=== PATIENT | female | born 1945 | race Two or more races ===

== ENCOUNTER 2020-08-16 15:08 | Outpatient (REF) | payer OTHER, SELFPAY ==
--- NOTE | ~2020-08-16 | XR_ITS ---
EXAMINATION: XR CHEST CLINICAL INFORMATION: Cough COMPARISON: None TECHNIQUE: 2 views of the chest were obtained. FINDINGS: The heart does not appear enlarged. There is retraction of the right pulmonary hilum. The thoracic aorta is calcified. There is right apical pleural thickening. There are increased central bronchial markings. There are scattered nodular opacities seen throughout the lungs. The largest measures 1 x 1.4 cm in the left lower lobe. There is no pleural effusion or pneumothorax. Bony structures are unremarkable. XR/XR chest 2V IMPRESSION: Right apical pleural thickening and volume loss to the right upper lobe. Bilateral bronchial wall thickening and bilateral pulmonary nodules and nodular opacities. Infectious, inflammatory and neoplastic process should be considered. If there is clinical suspicion of pneumonia, short-term chest x-ray follow-up following antibiotic treatment would be recommended. If there are no symptoms to suggest infection or chest x-ray findings do not resolve, chest CT scan should be considered.
== END 2020-08-16 15:09 | disposition home or self-care (01) ==
LOC: HO.HMGCX 15:08
PROVIDERS: PCP Internal Medicine; Visit Provider Nurse Practitioner Family
DX: R05 Cough (principal)
CPT/HCPCS: 71046

== ENCOUNTER 2020-08-16 16:06 | Outpatient (REF) | payer OTHER, SELFPAY ==
[2020-08-17 12:35] LABS: Influenza A PCR NEGATIVE (Negative); Influenza B PCR NEGATIVE (Negative); Resp Syncy Virus RNA Qual PCR NEGATIVE (Negative); SARS COV2 PCR INHOUSE NEGATIVE (Negative)
== END 2020-08-16 16:07 | disposition home or self-care (01) ==
LOC: HO.LAB 16:06
PROVIDERS: Visit Provider Nurse Practitioner Family
DX: Z20.822 Contact with and (suspected) exposure to COVID-19 (principal)
CPT/HCPCS: 0241U; 36415

== ENCOUNTER 2020-11-07 08:24 | Outpatient (REF) | payer OTHER, SELFPAY ==
--- NOTE | ~2020-11-07 | XR_ITS ---
EXAMINATION: XR LUMBOSACRAL SPINE CLINICAL INFORMATION: M54.16 - Radiculopathy, lumbar region COMPARISON: None TECHNIQUE: Three views of the lumbosacral spine. FINDINGS: There is normal lumbar segmentation with 5 nonrib-bearing lumbar vertebrae of normal height and normal lumbar lordosis. There is borderline levocurvature mid to lower lumbar spine. There is no vertebral compression or destructive process. Degenerative disc and degenerative facet changes are present at L4-L5 with associated grade 0-1 spondylolisthesis. There is also facet degeneration at the lumbosacral junction without narrowing. The SI joints and visualized sacrum are unremarkable. Bowel gas unremarkable. There are some scattered benign oval calcifications pelvis scattered atherosclerotic calcifications are present aorta. XR/XR lumbar spine 2-3V IMPRESSION: 1. Grade 0-1 spondylolisthesis L4-L5 with degenerative disc and degenerative facet changes. 2. Facet degenerative changes lumbosacral junction.
--- NOTE | ~2020-11-07 | XR_ITS ---
EXAMINATION: XR KNEE, LEFT CLINICAL INFORMATION: Left knee pain COMPARISON: None TECHNIQUE: Four views of the left knee. FINDINGS: There is no fracture or dislocation or destructive process. There is borderline narrowing medial knee joint compartment. No erosive change or chondrocalcinosis. Lateral view is slightly obliqued. There is no overt effusion. Some mild spurring is present at the quadriceps insertion patella. Hoffa's fat pad appears normal. XR/XR knee LT 4V IMPRESSION: 1. Borderline narrowing medial knee joint compartment. 2. Spurring at quadriceps insertion patella.
--- NOTE | ~2020-11-07 | XR_ITS ---
EXAMINATION: XR CHEST CLINICAL INFORMATION: Abnormal findings of lungs. COMPARISON: Chest 08/16/2020 TECHNIQUE: Two views of the chest were obtained. FINDINGS: There is a thick right apical density/scarring with tenting of right hemidiaphragm and loss of right lung volume. There is linear stranding in the right lower lobe as well as right upper lobe, likely chronic scarring. There are bilateral multiple calcified and noncalcified nodules, similar to previous study. There is no pleural effusion. Heart size and pulmonary vascularity is normal. No gross bony abnormality seen. XR/XR chest 2V IMPRESSION: Right apical pleural thickening, right hemidiaphragm tenting with loss of right lung volume. There are chronic interstitial changes in the right upper lobe and right lower lobe which are stable. Multiple calcified and noncalcified pulmonary nodules are stable, as well. No major change from 08/16/2020. Correlation with noncontrast CT chest can be performed.
[2020-11-07 11:15] LABS: MANUAL DIFF FLAG NO
[2020-11-07 11:26] LABS: Basophils Percent Auto 0.5 % (0-2); Eosinophils Absolute Auto 0.1 X10*3/uL (0.0-0.4); Eosinophils Percent Auto 1.2 % (0-4); Hematocrit 41.8 % (37-47); Hemoglobin 13.6 g/dl (12.0-16.0); Imm Gran Abs Auto 0.05 X10*3/uL (0.00-0.03); Imm Gran Pct Auto 0.9 % (0.0-0.4); Lymphocytes Percent Auto 34.4 % (20-40); Mean Corpuscular HGB Conc 32.5 g/dl (31.0-35.0); Mean Corpuscular Hemoglobin 31.7 pg (27.0-33.0); Mean Corpuscular Volume 97.4 fL (80-98); Mean Platelet Volume 9.4 fL (9.4-12.3); Monocytes Absolute Auto 0.4 X10*3/uL (0.1-1.2); Monocytes Percent Auto 7.3 % (2-11); Neutrophils Absolute Auto 3.2 X10*3/uL (2.0-8.3); Neutrophils Percent Auto 55.7 % (45-73); Platelet Count 331 X10*3/uL (160-400); Red Blood Count 4.29 X10*6/uL (4.20-5.50); Red Cell Distribution Width 14.1 % (11.0-16.0); White Blood Count 5.8 X10*3/uL (4.8-10.8)
[2020-11-07 11:55] LABS: Alanine Aminotransferase 24 U/L (0-31); Alkaline Phosphatase 38 U/L (39-117); Anion Gap 10 (12-20); Aspartate Amino Transferase 16 U/L (5-31); Bilirubin Total 0.5 mg/dL (0.0-1.0); Blood Urea Nitrogen 15 mg/dL (9-16); Calcium 8.9 mg/dL (8.4-10.2); Carbon Dioxide 31 mmol/L (22-29); Chloride 104 mmol/L (96-108); Cholesterol 253 mg/dL; Estimated Glomerular Filt Rate > 60; Glucose Fasting 106 mg/dL (60-99); HDL Cholesterol 81 mg/dL; LDL Cholesterol Calculated 152 mg/dl; Potassium 4.3 mmol/L (3.3-5.1); Sodium 141 mmol/L (135-145); Total Protein 6.3 g/dL (6.5-8.0); Triglycerides 103 mg/dL
[2020-11-07 11:57] LABS: TSH reflex Free T4 0.53 uIU/mL (0.32-4.0); Vitamin D 25-OH Total 49.8 ng/mL (>30)
== END 2020-11-07 08:25 | disposition home or self-care (01) ==
LOC: HO.HMGCLDS 08:24
PROVIDERS: PCP Internal Medicine; Visit Provider Internal Medicine
DX: Z00.00 Encounter for general adult medical examination without abnormal findings (principal); M54.16 Radiculopathy, lumbar region; M25.562 Pain in left knee; R91.8 Other nonspecific abnormal finding of lung field; Z78.0 Asymptomatic menopausal state; Z82.49 Family history of ischemic heart disease and other diseases of the circulatory system
CPT/HCPCS: 36415; 71046; 72100; 73564; 80053; 80061; 82306; 84443; 85025

== ENCOUNTER 2021-03-01 10:07 | Outpatient (REF) | payer OTHER, SELFPAY ==
[2021-03-04 12:42] LABS: TS Negative Control Passed; TS Panel A 1; TS Panel B 2; TS Positive Control Passed; TSpotTB Negative (Negative)
== END 2021-03-01 10:08 | disposition home or self-care (01) ==
LOC: HO.HMGCLDS 10:07
PROVIDERS: PCP Internal Medicine; Visit Provider Internal Medicine
DX: Z11.1 Encounter for screening for respiratory tuberculosis (principal)
CPT/HCPCS: 36415; 86481

== ENCOUNTER 2022-02-21 10:27 | Outpatient (REF) | payer OTHER, SELFPAY ==
--- NOTE | ~2022-02-21 | MM_ITS ---
EXAMINATION: BONE DENSITOMETRY CLINICAL INDICATION: Osteoporosis. COMPARISON: Previous BD dated 03/06/2016 and baseline BD dated 03/02/2014. TECHNIQUE: Using a [employer] DXA System (software version: 13.1) manufactured by [employer], dual-energy x-ray absorptiometry was performed of the lumbar spine and left hip. The images are of good technical quality. Summary results are attached. FINDINGS: AP SPINE L1-L3 (excluding L4): The data of L1-L4 has been changed to exclude the L4 vertebral body, because degenerative changes at this level may cause overestimation of lumbar spine density. Current: BMD 1.008 g/cm2, Z-score 0.9, T-score -1.4, osteopenia, 9.0% increase from previous, 5.8% increase from baseline (<5% change is not significant). Prior: BMD 0.925 g/cm2. Baseline: BMD 0.953 g/cm2. LEFT FEMUR, NECK: Current: BMD 0.675 g/cm2, Z-score -0.3, T-score -2.6, osteoporosis. Prior: BMD 0.691 g/cm2. Baseline: BMD 0.721 g/cm2. LEFT FEMUR, TOTAL: Current: BMD 0.730 g/cm2, Z-score -0.1, T-score -2.2, osteopenia, 0.7% increase from previous, 1.7% decrease from baseline (<5% change is not significant). Prior: BMD 0.725 g/cm2. Baseline: BMD 0.743 g/cm2. IDENTIFIED RISK FACTORS: Early menopause, height loss, hysterectomy, secondary osteoporosis. HISTORY OF FRACTURE: None listed. MEDICATIONS: Calcium, vitamin D. MM/XR DEXA axial skeleton IMPRESSION: 1. DIAGNOSIS: Osteoporosis based on the lowest T-score value of -2.6 in the femoral neck applying World Health Organization criteria. 2. 10-YEAR FRACTURE RISK PREDICTION, FRAX: According to the guidelines, FRAX calculation should only be performed on patients in the osteopenia bone density category. Therefore, FRAX was not performed on this patient. 3. Treatment Recommendations: NOF guidelines recommend consideration for treatment in postmenopausal women and men age 50 and older presenting with the following: -A hip or vertebral (clinical or morphometric) fracture. -T-score less than or equal to -2.5 at the femoral neck or spine after appropriate evaluation to exclude secondary causes. -Low bone mass at the hip or spine and a 10-year fracture probability by FRAX of greater than or equal to 3% for hip fracture or greater than or equal to 20% for major osteoporotic fracture based on the [place] adapted WHO algorithm. 4. Other Recommendations: All treatment decisions require clinical judgment and consideration of individual patient factors, including patient preferences, comorbidities, previous drug use, risk factors not captured in the FRAX model (e.g. frailty, falls, vitamin D deficiency, increased bone turnover, interval significant decline in bone density) and possible under or overestimation of fracture risk by FRAX. Additional medical evaluation for secondary cause of low bone mineral density may be appropriate. FUTURE SCAN RECOMMENDATION: People with diagnosed cases of osteoporosis or at high risk for fracture should have regular bone mineral density tests. For patients eligible for Medicare, routine testing is allowed once every 2 years. The testing frequency can be increased to one year for patients who have rapidly progressing disease, those who are receiving or discontinuing medical therapy to restore bone mass, or have additional risk factors.
--- NOTE | ~2022-02-21 | MM_ITS ---
EXAMINATION: MM SCREENING DIGITAL BREAST TOMOSYNTHESIS, BILATERAL CLINICAL INFORMATION: Screening. Asymptomatic. The lifetime risk of breast cancer based on the Tyrer-Cuzick Model is 3%. COMPARISON: Mammography: 03/06/2016, 03/12/2014, (baseline) targeted right breast ultrasound 03/12/2014. TECHNIQUE: Digital breast tomosynthesis is performed in both the craniocaudal and mediolateral oblique views along with computer-aided detection (CAD). Synthesized 2D images are generated from the tomosynthesis. FINDINGS: The breasts are heterogeneously dense, which may obscure small masses (ACR BI-RADS breast composition Category c). There are no significant masses, abnormal calcifications, or other abnormalities. No architectural abnormality. There is a small smooth nodular asymmetry along posterior nipple line on MLO view similar to prior exam 2015. The axilla and skin contours are unremarkable. MM/MM tomosynthesis screening BI IMPRESSION: No mammographic evidence of malignancy. ASSESSMENT: BI-RADS 2: Benign RECOMMENDATION: Routine annual mammography screening. This patient's information was entered into a reminder system with a target due date for their next mammogram.
== END 2022-02-21 10:28 | disposition home or self-care (01) ==
LOC: HO.MAMMO 10:27
PROVIDERS: PCP Internal Medicine; Visit Provider Internal Medicine
DX: Z12.31 Encounter for screening mammogram for malignant neoplasm of breast (principal); Z13.820 Encounter for screening for osteoporosis; M81.0 Age-related osteoporosis without current pathological fracture; Z78.0 Asymptomatic menopausal state
CPT/HCPCS: 77063; 77067; 77080

== ENCOUNTER 2022-04-18 07:26 | Outpatient (REF) | payer BC, SELFPAY ==
[2022-04-18 11:43] LABS: MANUAL DIFF FLAG NO
[2022-04-18 11:55] LABS: Basophils Absolute Auto 0.1 X10*3/uL (0.0-0.2); Basophils Percent Auto 1.4 % (0-2); Eosinophils Absolute Auto 0.3 X10*3/uL (0.0-0.4); Eosinophils Percent Auto 5.5 % (0-4); Hemoglobin 13.5 g/dl (12.0-16.0); Imm Gran Abs Auto 0.02 X10*3/uL (0.00-0.03); Imm Gran Pct Auto 0.4 % (0.0-0.4); Lymphocytes Absolute Auto 2.3 X10*3/uL (1.2-4.9); Lymphocytes Percent Auto 46.7 % (20-40); Mean Corpuscular HGB Conc 32.1 g/dl (31.0-35.0); Mean Corpuscular Hemoglobin 30.8 pg (27.0-33.0); Mean Corpuscular Volume 95.9 fL (80.0-98.0); Mean Platelet Volume 9.2 fL (9.4-12.3); Monocytes Absolute Auto 0.5 X10*3/uL (0.1-1.2); Monocytes Percent Auto 9.9 % (2-11); Neutrophils Absolute Auto 1.8 x10*3/uL (2.0-8.3); Neutrophils Percent Auto 36.1 % (45-73); Platelet Count 337 X10*3/uL (160-400); Red Blood Count 4.38 X10*6/uL (4.20-5.50); Red Cell Distribution Width 13.2 % (11.0-16.0); White Blood Count 4.9 X10*3/uL (4.8-10.8)
[2022-04-18 12:25] LABS: Alanine Aminotransferase 17 U/L (0-31); Anion Gap 11 (12-20); Aspartate Amino Transferase 19 U/L (5-31); Blood Urea Nitrogen 13 mg/dL (9-16); Calcium 9.3 mg/dL (8.4-10.2); Carbon Dioxide 29 mmol/L (22-29); Chloride 104 mmol/L (96-108); Cholesterol 265 mg/dL; Estimated Glomerular Filt Rate > 60; Glucose Fasting 97 mg/dL (60-99); HDL Cholesterol 76 mg/dL; LDL Cholesterol Calculated 163 mg/dl; Potassium 4.2 mmol/L (3.3-5.1); Sodium 140 mmol/L (135-145); Triglycerides 131 mg/dL
[2022-04-18 12:28] LABS: TSH reflex Free T4 2.44 uIU/mL (0.32-4.0)
[2022-04-18 12:31] LABS: Vitamin D 25-OH Total 48.2 ng/mL (>30)
[2022-04-18 12:45] LABS: Folate 12.9 ng/mL (> or = 4.0); Vitamin B12 511 pg/mL (200-900)
== END 2022-04-18 07:27 | disposition home or self-care (01) ==
LOC: HO.HMGCLDS 07:26
PROVIDERS: PCP Internal Medicine; Visit Provider Internal Medicine
DX: Z00.01 Encounter for general adult medical examination with abnormal findings (principal); M81.0 Age-related osteoporosis without current pathological fracture; Z78.0 Asymptomatic menopausal state
CPT/HCPCS: 36415; 80048; 80061; 82306; 82607; 82746; 84443; 84450; 84460; 85025

== ENCOUNTER 2024-06-26 13:52 | Outpatient (AMB) | payer BC, SELFPAY ==
--- NOTE | 2024-06-26 13:59 | MHC.OFFWIV ---
Intake Vital Signs 06/26/24 14:01 BP 140/80 H Blood Pressure Location Lt brachial Position Sitting Pulse 93 Pulse Source Pulse Oximeter Temp 98.2 F Temp Source Oral Pulse Oximetry (%) 94 Oxygen Delivery Method Room Air Intake Visit Reasons: EP-cold symptoms, sob Intake Note: Patient here for cough, SOB and congestion that has been present for 3 days. Patient Tobacco Use Status: Never used Tobacco Allergies No Known Allergies [No Known Allergies*] Allergy (Verified 06/26/24 14:01) environmental Allergy (Unknown, Uncoded 06/26/24 14:01) itching Do you need a note to return to daycare/school/sports/work: No HPI HPI Comments History of Present Illness Details History - The patient is a 79-year-old female presenting with respiratory concerns including cough, nasal congestion, and difficulty breathing. - She has experienced these symptoms for three days, including a persistent cough and nasal congestion described as stuffy nose. - She also reports experiencing mild difficulty in breathing with some wheezing noted but denies any sinus pain, ear pain, or head congestion. - The patient previously tried Theraflu with minor symptomatic relief but noted interference with her nocturnal work activities. - She denies having asthma, COPD, or a history of smoking. - Her environment, being around students who are often ill, may have contributed to her symptomatology without clear inciting events. Physical Exam General: Cooperative, healthy appearing, comfortable and no acute distress Orientation/consciousness: Patient oriented x3 Limitations: No limitations Head: Normal to inspection Ears: Hearing grossly normal bilaterally, external ears normal and TM's normal bilaterally Nose: Normal external nose present, Normal nares present and No nasal discharge present Face and sinus: Normal facial exam and Yes sinuses nontender Mouth: Normal oral and palatal mucosa present and moist mucous membranes Throat: Yes tonsils normal, Yes uvula midline. Posterior oropharynx erythema Eyes: Appearance normal, both eyes and all related structures Neck: Normal visual inspection Respiratory: Clear to auscultation bilaterally. Normal respiratory effort, able to speak in complete sentences, no respiratory distress, not tachypneic, no tripod positioning and no use of accessory muscles. Cardiovascular: Regular rate and rhythm. Normal S1 and S2 Skin: No rashes or lesions noted Neuro: Patient oriented x3 Extremities: Normal to inspection and Yes no clubbing, cyanosis or edema [facility] Medical History Breast cancer screening by mammogram Colon cancer screening Family history of early CAD Knee pain, left Menopause Osteoporosis Pulmonary nodules/lesions, multiple Surgical History History of partial hysterectomy Family History Father HTN (hypertension) Mother HTN (hypertension) History of heart attack Diabetes mellitus CVD (cardiovascular disease) Brother No problems noted. Brother Stroke Son No problems noted. Social History Housing: House Alcohol intake: never Patient Tobacco Use Status: Never used Tobacco e-Cigarette/Vaping Use: Never Used Second Hand Smoke Exposure: No service: No Current occupational status: employed Current occupational exposures/hazards: No Cognitive needs: No Hearing needs: No Vision needs: No Review of Systems Const All systems reviewed & are unremarkable except as noted in HPI and below Physical Exam Vital Signs: Last Vital Signs Temp 98.2 F 06/26/24 14:01 Pulse 93 06/26/24 14:01 BP 140/80 H 06/26/24 14:01 Pulse Ox 94 06/26/24 14:01 Oxygen Delivery Method Room Air 06/26/24 14:01 Assessment & Plan Assessment & Plan (1) Upper respiratory tract infection: Code(s): J06.9 - Acute upper respiratory infection, unspecified Qualifiers: URI type: unspecified URI Qualified Code(s): J06.9 - Acute upper respiratory infection, unspecified Plan: VSS, pt well appearing and PE unremarkable. The patient's respiratory symptoms warrant testing for influenza, COVID-19, and RSV. Should results be negative, I will initiate antibiotic therapy to address potential bacterial etiology, emphasizing not commencing this treatment if viral infection is confirmed. Symptomatic relief strategies include continued use of Theraflu and a prescribed nighttime cough suppressant. Acetaminophen is recommended as needed for fever, and ibuprofen for generalized body aches. To facilitate recovery, I also suggested the patient take time off work, providing a work note for 2 days. The plan includes clear instructions regarding medication use and the patient's informed acknowledgment of these recommendations. Patient was informed and verbally consented to the use of an ambient scribe for clinic note documentation during this visit Orders: Orders SARS-CoV2/FLU/RSV Today R09.89 - Other specified symptoms and signs involving the circulatory and respiratory systems Medications: New benzonatate 200 mg PO BEDTIME PRN 10 caps 0RF cough azithromycin For 250 mg dose pack: take 500 mg today (day 1), then 250 mg for 4 days (days 2-5) PO 6 tabs 0RF Coding Level of Care Code Est Pt Level 3 (94418) Diagnoses Upper respiratory tract infection, unspecified type J06.9 URI type: unspecified URI
[2024-06-26 14:01] VITALS: BP 140/80; PULSE 93; TEMP 36.8; O2SAT 94
== END 2024-06-26 14:22 | disposition home or self-care (01) ==
PROVIDERS: PCP Internal Medicine; Visit Provider Physician Assistant
DX: J06.9 Acute upper respiratory infection, unspecified (principal)

== ENCOUNTER 2024-06-26 13:52 | Outpatient (REF) | payer BC, SELFPAY ==
[2024-06-26 18:18] LABS: Influenza A PCR NEGATIVE (Negative); Influenza B PCR NEGATIVE (Negative); Resp Syncy Virus RNA Qual PCR POSITIVE (Negative); SARS COV2 PCR INHOUSE NEGATIVE (Negative)
== END 2024-06-26 13:53 | disposition home or self-care (01) ==
LOC: HO.LAB 13:52
PROVIDERS: Physician Assistant; PCP Internal Medicine
DX: J06.9 Acute upper respiratory infection, unspecified (principal)
CPT/HCPCS: 0241U

== ENCOUNTER 2024-07-29 14:32 | Outpatient (AMB) | payer BC, SELFPAY ==
[2024-07-29 14:49] VITALS: BP 134/68; PULSE 88; TEMP 37; O2SAT 93; BMI 19.8
--- NOTE | 2024-07-29 14:49 | MHC.OFFWIV ---
Intake Vital Signs 07/29/24 14:49 Height 5 ft 3 in Weight 112 lb BMI 19.8 BP 134/68 Blood Pressure Location Rt brachial Position Sitting Pulse 88 Pulse Source Pulse Oximeter Temp 98.6 F Temp Source Oral Pulse Oximetry (%) 93 Oxygen Delivery Method Room Air Intake Visit Reasons: EP allergies, sob, watery eyes Intake Note: Pt is here today for a walk in visit. Pt c/o sob watery itchy red eyes for 4 days. Patient Tobacco Use Status: Never used Tobacco Allergies No Known Allergies [No Known Allergies*] Allergy (Verified 06/26/24 14:01) environmental Allergy (Unknown, Uncoded 07/29/24 14:51) itching HPI HPI Comments History of Present Illness Details History - The patient is a 79-year-old female presenting with difficulty breathing. - Noted progressive worsening over the past three to four days, with current symptoms including wheezing. - Patient has a history of seasonal allergic rhinitis, which previously responded to cetirizine, though has not been taken consistently this year. - Reports some sinus pressure, mild cough, and denies fever. - No history of asthma or COPD - Patient denies smoking history. Physical Exam General: Cooperative, healthy appearing, comfortable and no acute distress Orientation/consciousness: Patient oriented x3 Limitations: No limitations Head: Normal to inspection Ears: Hearing grossly normal bilaterally, external ears normal and TM's normal bilaterally Nose: Normal external nose present, Normal nares present and No nasal discharge present Face and sinus: Normal facial exam and Yes sinuses nontender Mouth: Normal oral and palatal mucosa present and moist mucous membranes Throat: Yes tonsils normal, Yes uvula midline. Posterior oropharynx erythema with cobblestoning Eyes: Appearance normal, both eyes and all related structures Neck: Normal visual inspection Respiratory: wheezing and dim. Normal respiratory effort, able to speak in complete sentences, Actively coughing, no respiratory distress, not tachypneic, no tripod positioning and no use of accessory muscles Cardiovascular: Regular rate and rhythm. Normal S1 and S2 Skin: No rashes or lesions noted Neuro: Patient oriented x3 Extremities: Normal to inspection and Yes no clubbing, cyanosis or edema [facility] Medical History Breast cancer screening by mammogram Colon cancer screening Family history of early CAD Knee pain, left Menopause Osteoporosis Pulmonary nodules/lesions, multiple Surgical History History of partial hysterectomy Family History Father HTN (hypertension) Mother HTN (hypertension) History of heart attack Diabetes mellitus CVD (cardiovascular disease) Brother No problems noted. Brother Stroke Son No problems noted. Social History Housing: House Alcohol intake: never Patient Tobacco Use Status: Never used Tobacco e-Cigarette/Vaping Use: Never Used Second Hand Smoke Exposure: No service: No Current occupational status: employed Current occupational exposures/hazards: No Cognitive needs: No Hearing needs: No Vision needs: No Review of Systems Const All systems reviewed & are unremarkable except as noted in HPI and below Physical Exam Vital Signs: Last Vital Signs Temp 98.6 F 07/29/24 14:49 Pulse 88 07/29/24 14:49 BP 134/68 07/29/24 14:49 Pulse Ox 94 07/29/24 14:49 Oxygen Delivery Method Room Air 07/29/24 14:49 BMI result Body Mass Index 19.8 Assessment & Plan Assessment & Plan (1) Acute lower respiratory infection: Code(s): J22 - Unspecified acute lower respiratory infection Plan: O2 93% lower than baseline, otherwise VSS, pt well appearing but lungs have insp wheeze and dim. Will get CXR to r/o PNA. Given the patient's symptoms, restarting an antihistamine (desloratadine as per ins coverage) is prescribed to address the seasonal allergic rhinitis. Furthermore, a steroid regimen using Solumedrol is initiated to reduce respiratory inflammation and ease breathing difficulties and wheezing, with detailed instructions provided to optimize uptake and minimize potential sleep disturbances. 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 Patient was informed and verbally consented to the use of an ambient scribe for clinic note documentation during this visit (2) Seasonal allergic reaction: Code(s): J30.2 - Other seasonal allergic rhinitis Plan: as above Orders: Orders XR chest 2V Today R05.9 - Cough, unspecified Medications: New methylprednisolone PO PER PKG DIR for 6 days 21 ea 0RF Coding Level of Care Code Est Pt Level 4 (72667) Diagnoses Acute lower respiratory infection J22 Seasonal allergic reaction J30.2
--- OUTSIDE RECORDS SUMMARY | 2024-07-29 15:49 | XMS_ITS | Data Portability ---
Author Organization [employer] [employer] [facility], [id number] Address [address] [place] [address] Assessment No assessment recorded. Plan of Treatment Reminders Order Date Submit Date Provider Last Modified By Organization Details Last Modified Time Details Appointments None record ed. Lab None record ed. Referral None record ed. Procedures None record ed. Surgeries None record ed. Imaging None record ed. Medication Orders None record ed. Patient TargetsNo targets recorded. Patient InstructionsNo instructions recorded. Reason for Referral None Reported. Procedures Surgical History Date Name Laterality Status Provider Name and Address Organization Details Recorded Time OC-UDS Send Out Template NON DOT completed MARBELLA SHANNON [employer] [facility] 03/17/2022 19:15:18 Imaging Results None recorded. Procedure Notes None recorded. Medical Equipment None Reported. Medications Name Sig Start Date Stop Date Status Note LastModified by Organization Details LastModified Time azithromycin 250 mg tablet TAKE 2 TABLETS BY MOUTH ON DAY 1, AND THEN TAKE 1 TABLET BY MOUTH ONCE A DAY ON DAY 2 THROUGH DAY 5 active Not Available Not Available No t Available Vitals None Recorded Social History None recorded. Functional Status None recorded. Mental Status None recorded. Family History Nothing Reported. Medical History No medical history recorded. Gynecological HistoryNo gynecological history recorded. Obstetrics History GPAL:G 0 P 0 0 0 0 Past Encounters Encounter ID Performer Location Encounter Start Date Encounter Closed Date Diagnosis/Indication Diagnosis SNOMED-CT Code Diagnosis ICD10 Code Diagnosis Note [id number] [facility] [address] 06/08/2017 15:00:15 06/08/2017 16:24:23 [id number] Alessio Dalton NP _[address] [place] [address] 03/17/2022 16:54:56 03/17/2022 19:29:50 History and physical examination, pre-employment [id number] Z02.1 Health Concerns Section Related Observation LastModified by Organization Detai ls LastModified Time None Recorded Concern Status LastModified by Organization Details LastModified Time None Recorded Advance Directives Directive None Recorded Payers Encounter Date Sequence Insurance Name Policy Number Policy Guy Covered Member ID Guy Member ID Guarantor Name 06/08/2017 1 [facility] [id number] Estrelita Isabela [id number] Estrelita Isabela 03/17/2022 OC-ESCREEN Estrelita Isabela [id number] Estrelita Isabela OBGyn Episode No OBEpisode recorded.
== END 2024-07-29 15:23 | disposition home or self-care (01) ==
PROVIDERS: PCP Internal Medicine; Visit Provider Physician Assistant
DX: J22 Unspecified acute lower respiratory infection (principal); J30.2 Other seasonal allergic rhinitis

== ENCOUNTER 2024-07-29 14:32 | Outpatient (REF) | payer BC, SELFPAY ==
--- NOTE | ~2024-07-29 | XR_ITS ---
EXAMINATION: XR CHEST 2 VIEWS HISTORY: R05.9 - Cough, unspecified COMPARISON: There are comparison is made with the prior examination dated 11/07/2020. FINDINGS: PA and lateral views of the chest are submitted. Again seen is moderate right apical pleural thickening unchanged. There is extensive scarring in the right lung as well as multiple bilateral calcified nodules. No new focal airspace opacities are identified. There is no pleural effusion, pneumothorax, or pulmonary vascular congestion. The heart is normal in size. The bones are intact. XR/XR chest 2V IMPRESSION: Scarring and old granulomatous disease. No acute cardiopulmonary abnormality. Electronically signed by: Bran Dubon MD 07/29/2024 03:43 PM EDT RP
== END 2024-07-29 14:33 | disposition home or self-care (01) ==
LOC: HO.HMGCX 14:32
PROVIDERS: PCP Internal Medicine; Visit Provider Physician Assistant
DX: R05.9 Cough, unspecified (principal)
CPT/HCPCS: 71046

== ENCOUNTER → 2024-07-29 15:28 | Outpatient (BNV) | payer BC, SELFPAY | PROVIDERS: PCP Internal Medicine; Visit Provider Radiology Diagnostic Radiology | DX: R91.8 Other nonspecific abnormal finding of lung field (principal) | CPT/HCPCS: 71046 ==

== ENCOUNTER 2024-10-20 07:04 | Outpatient (REF) | payer BC, SELFPAY ==
[2024-10-20 11:03] LABS: Alanine Aminotransferase 17 U/L (0-31); Anion Gap 11 (12-20); Aspartate Amino Transferase 23 U/L (5-31); Blood Urea Nitrogen 14 mg/dL (9-16); Calcium 8.6 mg/dL (8.4-10.2); Carbon Dioxide 29 mmol/L (22-29); Chloride 106 mmol/L (96-108); Cholesterol 267 mg/dL (<200); Estimated Glomerular Filt Rate > 60; HDL Cholesterol 76 mg/dL (>40); Potassium 3.8 mmol/L (3.3-5.1); Sodium 142 mmol/L (135-145); Triglycerides 106 mg/dL (<150)
== END 2024-10-20 07:05 | disposition home or self-care (01) ==
LOC: HO.HMGCLDS 07:04
PROVIDERS: PCP Internal Medicine; Visit Provider Internal Medicine
DX: Z13.220 Encounter for screening for lipoid disorders (principal); Z13.1 Encounter for screening for diabetes mellitus; M81.0 Age-related osteoporosis without current pathological fracture
CPT/HCPCS: 36415; 80048; 80061; 82306; 84450; 84460

== ENCOUNTER 2024-10-21 12:00 | Outpatient (AMB) | payer BC, SELFPAY ==
--- NOTE | 2024-10-21 12:09 | A.OFFPC_ITS ---
Vital Signs 10/21/24 12:10 Height 5 ft 3 in Weight 111 lb 6 oz BMI 19.7 BP 112/62 Blood Pressure Location Lt brachial Position Sitting Respiration 16 Pulse 76 Pulse Source Pulse Oximeter Temp 98.3 F Temp Source Oral Pulse Oximetry (%) 96 Oxygen Delivery Method Room Air Intake Visit Reasons: Annual PE Intake Note: Pt is here for her annual PE. 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 Accompanied by: Self / Same As Patient Allergies No Known Allergies (No Known Allergies*) Allergy (Verified 10/21/24 12:30) environmental Allergy (Unknown, Uncoded 10/21/24 12:30) itching Medication List - Last Reconciled 10/21/24 by Dolly Peguero MD alendronate 70 mg PO QWEEK 90 days cetirizine (Zyrtec) 10 mg PO DAILY PRN cholecalciferol (vitamin D3) 25 mcg PO DAILY magnesium 400 mg PO DAILY Tobacco use date assessed: 10/21/24 Fall risk assessment: No Falls in past year Last assessed Fall Risk: 10/21/24 Dental Screening Did you have a dental visit in the last 12 months?: No Did you have a dental problem in the last 6 months where you did not have access to dental care?: No Was dental information given to patient?: Patient declined HPI Annual PE HPI Details - The patient is a 79-year-old female pr esenting for her yearly physical exam. - Osteoporosis: Diagnosed with osteoporo sis in the left hip, with irregular intake of alendronate since the last prescription in 2022. 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 - Hyperlipidemia: The patient's LDL chol esterol level has increased to 170 mg/dL, with previous levels at 152 mg/dL and 163 mg/dL. admits to not following any particular diet and is not on any cholesterol-lowering medication - Preventative care: The patient had a m ammogram in 2021, which was normal, and a bone density test is planned. - The patient has never had a colonoscop y and agreed to do Cologuard for colon cancer screening. - she has been feeling well, with no com plaints at present time. [facility] Medical History (Updated 10/24/24 @ 04:47 by Dolly Peguero MD) Dyslipidemia Osteoporosis Family history of early CAD Menopause Breast cancer screening by mammogram Colon cancer screening Knee pain, left Pulmonary nodules/lesions, multiple Surgical History History of partial hysterectomy Family History Father HTN (hypertension) Mother HTN (hypertension) History of heart attack Diabetes mellitus CVD (cardiovascular disease) Brother No problems noted. Brother Stroke Son No problems noted. Social History Housing: House Alcohol intake: never Patient Tobacco Use Status: Never used Tobacco e-Cigarette/Vaping Use: Never Used Second Hand Smoke Exposure: No service: No Current occupational status: employed Current occupational exposures/hazards: No Cognitive needs: No Hearing needs: No Vision needs: No Questionnaire PHQ-9 Over the last 2 weeks, how often have you been bothered by any of the following problems? 1. Little interest or pleasure in doing things: not at all 2. Feeling down, depressed, or hopeless: not at all 3. Trouble falling or staying asleep, or sleeping too much: not at all 4. Feeling tired or having little energy: not at all 5. Poor appetite or overeating: not at all 6. Feeling bad about yourself - or that you are a failure or have let yourself or your family down: not at all 7. Trouble concentrating on things, such as reading the newspaper or watching television: not at all 8. Moving or speaking so slowly that other people could have noticed. Or the opposite - being so fidgety or restless that you have been moving around a lot more than usual: not at all 9. Thoughts that you would be better off or of hurting yourself in some way: not at all Total score: 0 Depression Screening Interpretation: Negative Depression Screening Done: Yes 12704 - PHQ-9 Billing: Yes Source: Developed by Drs. Bran Boggs, Hanna Contreras, Tristen Mendez and colleagues, with an educational audelia from [employer]. Thrive Questionnaire Date Thrive assessed: 01/24/22 UMESH-7 AMB Questionnaire UMESH-7 Date UMESH - 7 assessed: 01/24/22 Feeling nervous, anxious, or on edge: 0 = Not at all Not being able to stop or control worryin = Not at all Worrying too much about different things: 0 = Not at all Trouble relaxin = Not at all Being so restless that it is hard to sit still: 0 = Not at all Becoming easily annoyed or irritable: 0 = Not at all Feeling afraid as if something awful might happen: 0 = Not at all Total UMESH-7 score (0-4 normal; 5-9 mild; 10-14 moderate; 15-21 severe): 0 Source: Developed by Drs. Bran Boggs, Hanna Contreras, Tristen Mendez and colleagues, with an educational audelia from [employer]. UMESH-7 Assessment Billing UMESH-7 Assessment Tool: UMESH-7 Assessment 78724 Review of Systems Const Denies body aches, Denies frequent falls, Denies lethargy, Denies malaise and Denies weakness Eyes Details: Sees Dr. Faulkner Reports requires corrective lenses ENT Details: Has full dentures Reports Normal hearing present and Denies dysphagia Card Denies chest pain, Denies chest pain with activity, Denies rapid heart rate, Denies irregular heart rhythm, Denies lightheadedness and Denies dyspnea Resp Denies cough and Denies dyspnea GI Denies abdominal pain, Denies change in bowel habits, Denies change in stool character, Denies dysphagia, Denies early satiety, Denies dyspepsia, Denies heartburn and Denies nausea Reports no additional complaints Musc Details: No history of fractures Reports no additional complaints Skin/Breast Denies breast pain, Denies breast mass and Denies rash Neuro Reports Normal hearing present, Denies frequent falls, Denies Sensory deficit (Neuro) and Denies weakness Psych Reports no additional complaints Endo Reports no additional complaints Haja/Lymph Reports no additional complaints Aller/Immun Reports no additional complaints Physical exam (Primary Care) Vital Signs: Last Vital Signs Temp 98.3 F 10/21/24 12:10 Pulse 76 10/21/24 12:10 Resp 16 10/21/24 12:10 BP 112/62 10/21/24 12:10 Pulse Ox 96 10/21/24 12:10 Oxygen Delivery Method Room Air 10/21/24 12:10 BMI result Body Mass Index 19.7 Tobacco/Smoking Status: Tobacco use Status Tobacco use date assessed 10/21/24 10/21/24 12:15 Patient Tobacco Use Status Never used Tobacco 10/21/24 12:15 e-Cigarette/Vaping Use Never Used 10/21/24 12:15 PHQ-9: PHQ-9 Score PHQ-9: Total score 0 10/21/24 12:45 Depression Screening Interpretation: Negative Thrive Assessment: Date of Thrive Assessment Date Thrive assessed 01/24/22 10/21/24 12:15 Const General: comfortable and no acute distress Nutritional Appearance: average body habitus Orientation/consciousness: patient oriented x3 Limitations: no limitations HENMT Head: Yes normocephalic Ears: hearing grossly normal bilaterally, external ears normal, TM's normal b ilaterally and EAC's normal General nose exam: Normal external nose present Face and sinus: Yes face symmetric Mouth: oropharynx normal and moist mucous membranes Eyes Conjunctivae: conjunctivae normal Sclerae: sclerae normal Pupils: Equal, round and reactive pupils present EOM: EOMs intact bilaterally Neck Neck: Yes full ROM and Yes no lymphadenopathy Thyroid: Thyroid normal Chest Chest palpation & inspection: normal inspection of the chest Breast/axilla palpation: normal palpation of the breasts Resp Effort & Inspection: normal respiratory effort and able to speak in complete sentences Auscultation: clear to auscultation bilaterally Cardio Jugular venous distension: no JVD Rate: regular rate Rhythm: regular rhythm Heart sounds: S1 normal heart sound present and S2 normal heart sound present GI Inspection: Yes normal to inspection Palpation (GI): Soft to palpation, nontender, no guarding and no masses Auscultation: normal bowel sounds General: Yes no CVA tenderness Back/Spine/Pelvis Back: no CVA tenderness Skin General skin exam: no rashes or lesions noted Neuro General: patient oriented x3, gait normal, moves all extremities, no focal motor deficits and CN's II-XI intact bilaterally Cranial nerves: Yes Equal, round and reactive pupils present and Yes Normal hearing present Cognition (Neuro): normal cognition Gait exam (Neuro): Normal gait present Motor exam (neuro): 5/5 motor strength present throughout Sensory Exam: No Sensory deficit (Neuro) Extrem General: Yes normal to inspection, Yes full ROM, Yes no pedal edema and Yes normal gait Psych Appearance: grossly normal and well kempt Mental Status: mental status grossly normal Speech and movement: Normal speech and movement present Affect: normal affect Results Reviewed Results Reviewed: Name: Gilberto Mar Age/Sex: 79/F [facility] 1945 [id number]#: [id number] Attend Dr: Dolly Peguero MD Re10/20/24 Status: DEP REF Location: [facility] Disch: SPEC : [id number] [place]: 10/20/24 STATUS: COMP REQ : [id number] RECD: 10/20/24-[address]: Dolly Peguero MD COMP: 10/20/24 ENTERED: 10/20/[address]: ORDERED: Met Prof Fast, AST, ALT, Lipid Panel, Vitamin D 25-OH Test Result Flag Reference Sodium 142 135-145 mmol/L Potassium 3.8 3.3-5.1 mmol/L CL 106 96-108 mmol/L CO2 29 22-29 mmol/L Gap 11 L 12-20 BUN 14 9-16 mg/dL Creat 0.60 0.5-1.4 mg/dL eGFR > 60 Chronic Kidney Disease: Estimated GFR < 60 mL/min/1.73m2 Severe Kidney Disease: Estimated GFR < 15 mL/min/1.73m2 FBS 97 60-99 mg/dL CA 8.6 # 8.4-10.2 mg/dL AST (GOT) 23 5-31 U/L ALT (GPT) 17 0-31 U/L Triglyceride 106 <150 mg/dL Desirable Triglyceride: less than 150 mg/dL Borderline High Triglyceride 150-199 mg/dL High Triglyceride: 200-499 mg/dL Very High Triglyceride: greater than or equal to 5OO mg/dL Cholesterol 267 H <200 mg/dL Desirable Cholesterol: less than 200 mg/dL Borderline High Cholesterol: 200-239 mg/dL High Cholesterol: greater than 239 mg/dL LDL Calculated 170 H <100 mg/dL Desirable LDL: less than 100 mg/dL Near Optimal/Above Optimal LDL: 110-129 mg/dL Borderline High LDL: 130-159 mg/dL High LDL: 160-189 mg/dL Very High LDL: greater than or equal to 190 mg/dL HDL 76 >40 mg/dL Desirable HDL: greater than 40 mg/dL Note: This HDL assay may give artificially low results in patients with liver disease. Vitamin D 25-OH 61.9 >30 ng/mL Health Based Reference Values* < 20 ng/mL Deficient 20-30 ng/mL Insufficient > 30 ng/mL Sufficient Coding Level of Care Code Est Pt Prev Care >65y(13714) Diagnoses Annual visit for general adult medical examination with abnormal findings Z00.01 Age-related osteoporosis without current pathological fracture M81.0 Osteoporosis type: age-related Presence of current pathological fracture: without current pathological fracture Dyslipidemia E78.5 Additional Codes UMESH-7 Assessment Billing - UMESH-7 Assessment Tool: UMESH-7 Assessment 93721 ([id number]) PHQ-9 - 56578 - PHQ-9 Billing: Yes ([id number]) Assessment & Plan Assessment & Plan (1) Annual visit for general adult medical examination with abnormal findings: Code(s): Z00.01 - Encounter for general adult medical examination with abnormal findings Plan: Reviewed recent fasting lab results with patient.. Sees Dr. Faulkner for her routine eye exam.. Take adequate calcium in diet and vitamin-D 3 at 2000 IU per cap once a day, in addition to weight-bearing exercises to help maintain good muscle tone and weight control. Screening mammogram ordered together with bone density scan. Cologuard testing ordered cancer screening. Advised to get yearly flu shot, up-to-date with her pneumonia vaccine but does not want to get shingles vaccine (2) Osteoporosis: Code(s): M81.0 - Age-related osteoporosis without current pathological fracture Category: Medical Qualifiers: Osteoporosis type: age-related Presence of current pathological fracture: without current pathological fracture Qualified Code(s): M81.0 - Age- related osteoporosis without current pathological fracture Plan: Has been inconsistent with taking her alendronate prescription since 2022, will repeat another bone density scan. Advised to take [id number] vitamin-D 3 at least 2000 units daily and take adequate calcium from dietary sources. Continue with regular weight-bearing exercise. (3) Dyslipidemia: Code(s): E78.5 - Hyperlipidemia, unspecified Category: Medical Plan: Reviewed recent fasting lipid profile with patient with high LDL cholesterol noted . Reinforced adherence to low-cholesterol diet and regular exercise, at least 30 minutes 3 to 4 times a week. Advised patient to make healthy food choices, eat more fruits, vegetables, whole grains, wild caught fish and low- fat dairy. Limit amount of meat and fried or fatty food products, as well as processed foods and fast foods. Follow-up scheduled with repeat fasting lipid panel in 4 months. Orders: Orders Alanine Aminotransferase 01/30/25 E78.5 - Hyperlipidemia, unspecified, M81.0 - Age-related osteoporosis without current pathological fracture Aspartate Amino Transferase 01/30/25 E78.5 - Hyperlipidemia, unspecified, M81.0 - Age-related osteoporosis without current pathological fracture XR DEXA axial skeleton 10/21/24 M81.0 - Age-related osteoporosis without current pathological fracture, Z12.31 - Encounter for screening mammogram for malignant neoplasm of breast MM tomosynthesis screening BI 10/21/24 M81.0 - Age-related osteoporosis without current pathological fracture, Z12.31 - Encounter for screening mammogram for malignant neoplasm of breast Lipid Panel 01/30/25 E78.5 - Hyperlipidemia, unspecified, M81.0 - Age-related osteoporosis without current pathological fracture Vitamin D 25-OH Total 01/30/25 E78.5 - Hyperlipidemia, unspecified, M81.0 - Age-related osteoporosis without current pathological fracture Referrals Cologuard Test Z12.11 - Encounter for screening for malignant neoplasm of colon, Z12.12 - Encounter for screening for malignant neoplasm of rectum Medications: Refilled alendronate 70 mg PO QWEEK 13 tabs 4RF 90 days M81.0 - Age-related osteoporosis without current pathological fracture
[2024-10-21 12:10] VITALS: BP 112/62; PULSE 76; RESP 16; TEMP 36.8; O2SAT 96; BMI 19.7
--- OUTSIDE RECORDS SUMMARY | 2024-10-21 12:42 | XMS_ITS | Data Portability ---
Author Organization [facility], [address] Address [address] [place] [address] Assessment No assessment recorded. Plan of Treatment [...] Send Out Template NON DOT completed MARBELLA HAASODETTE SHANNON [facility] 03/17/2022 19:15:18 Imaging Results None recorded. [...] SNOMED-CT Code Diagnosis ICD10 Code Diagnosis Note [id number] [facility] [address] [place] [address] 06/08/2017 15:00:15 06/08/2017 16:24:23 [id number] Alessio Dalton NP [facility] [address] [place] [address] 03/17/2022 16:54:56 03/17/2022 19:29:50 History and physical examination, pre-employment [id number] Z02.1 Health Concerns Section Related Observation LastModified by Organization Detai ls LastModified Time None Recorded Concern Status LastModified by Organization Details LastModified Time None Recorded Advance Directives Directive None Recorded Payers Insurance Date Sequence Insurance Name Policy Number Policy Guy Covered Member ID Guy Member ID Guarantor Name 03/17/2022 1 [facility] [id number] Estrelita Isabela [id number] Estrelita Isabela 03/17/2022 OC-ESCREEN Estrelita Isabela [id number] Estrelita Isabela OBGyn Episode No OBEpisode recorded.
== END 2024-10-21 13:55 | disposition home or self-care (01) ==
LOC: HO.HMCC 12:00
PROVIDERS: PCP Internal Medicine; Visit Provider Internal Medicine
DX: Z00.01 Encounter for general adult medical examination with abnormal findings (principal); M81.0 Age-related osteoporosis without current pathological fracture; E78.5 Hyperlipidemia, unspecified

== ENCOUNTER → 2024-10-21 12:00 | Outpatient (BNVA) | payer BC, SELFPAY | PROVIDERS: PCP Internal Medicine; Visit Provider Internal Medicine | DX: Z00.01 Encounter for general adult medical examination with abnormal findings (principal); M81.0 Age-related osteoporosis without current pathological fracture; E78.5 Hyperlipidemia, unspecified | CPT/HCPCS: 96127 ==

== ENCOUNTER 2024-12-10 01:08 | Emergency (ER) | payer BC, SELFPAY ==
--- NOTE | ~2024-12-10 | CT_ITS ---
CLINICAL HISTORY: trauma, head injury CT head without contrast Comparison: None provided Findings: No intra-axial mass, midline shift, hydrocephalus, or acute hemorrhage. Benign bilateral basal ganglia calcifications. There is no sinus or mastoid fluid. Enophthalmos. Orbits otherwise unremarkable. There is no acute fracture. IMPRESSION: 1. No acute intracranial findings. This document has been electronically signed by: Mere Rushing MD on 12/10/2024 04:31:45
[2024-12-10 01:22] VITALS: BP 162/69; PULSE 69; RESP 20; TEMP 36.3; O2SAT 95; BMI 20.4
--- NOTE | 2024-12-10 02:07 | ED.GENADULT ---
HPI - General Adult General Chief complaint: Fall Stated complaint: Fall Time Seen by Provider: 12/10/24 02:07 History of Present Illness ED Provider: Rosa M CUTLER narrative: The patient is a 79-year-old woman who was in quite good health for her age. She still works. 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 She was working tonight when she slipped on a wet floor and hit her head. She was sent to the emergency room for evaluation. She was brought here by private vehicle. She had no loss of consciousness. She has no neck pain or pain with moving her neck. No numbness, tingling, weakness, burning in her extremities. She indicates that she hit the left parietal portion of her head. Related Data Home Medications ?Medication ?Instructions ?Recorded ?Confirmed cholecalciferol (vitamin D3) 25 25 mcg PO DAILY 09/06/20 10/21/24 mcg (1,000 unit) capsule magnesium 200 mg tablet 400 mg PO DAILY 09/06/20 10/21/24 cetirizine 10 mg tablet (Zyrtec) 10 mg PO DAILY PRN 10/08/20 10/21/24 Previous Rx's ?Medication ?Instructions ?Recorded alendronate 70 mg tablet 70 mg PO QWEEK 90 days #13 tabs 10/21/24 Allergies Allergy/AdvReac Type Severity Reaction Status Date / Time No Known Allergies (No Known Allergy Verified 12/10/24 01:23 Allergies*) environmental Allergy Unknown itching Uncoded 12/10/24 01:23 Review of Systems Review of Systems: Yes all other systems are reviewed and are negative PMF Past Medical History Medical History (Updated 12/10/24 @ 05:10 by Thierry Mederos MD) Dyslipidemia Osteoporosis Family history of early CAD Menopause Breast cancer screening by mammogram Colon cancer screening Knee pain, left Pulmonary nodules/lesions, multiple Surgical History History of partial hysterectomy Family History Family History Father HTN (hypertension) Mother HTN (hypertension) History of heart attack Diabetes mellitus CVD (cardiovascular disease) Brother No problems noted. Brother Stroke Son No problems noted. Social History Social History Housing: House Alcohol intake: never Patient Tobacco Use Status: Never used Tobacco e-Cigarette/Vaping Use: Never Used Second Hand Smoke Exposure: No service: No Current occupational status: employed Current occupational exposures/hazards: No Cognitive needs: No Hearing needs: No Vision needs: No Physical Exam ED Vital Signs: Vital Signs - 24 hr 12/10/24 01:22 12/10/24 04:09 12/10/24 05:15 Temperature 97.4 F 97.4 F 97.4 F Pulse Rate 69 66 69 Respiratory Rate 20 16 18 Blood Pressure 162/69 H 132/57 L 129/56 L Pulse Oximetry 95 96 97 Oxygen Delivery Method Room Air Room Air Room Air BMI result Body Mass Index 20.4 Const Other: The patient is a slim 79-year-old woman who was awake and alert and does not seem in obvious distress. Orientation/consciousness: patient oriented x3 HENMT Other: There is some tenderness with the left parietal scalp. No gross soft tissue swelling. No bleeding. The skin of the scalp is intact. The face is symmetrical. No raccoon eyes. No bull sign. Eyes Other: Pupils are round equal, conjunctivae are clear, extraocular movements intact General: appearance normal, both eyes and all related structures Neck Other: No posterior midline C-spine tenderness. She moves her neck easily without pain in all directions. I think her C-spine is clinically clear. Resp Effort & Inspection: normal respiratory effort Auscultation: clear to auscultation bilaterally Cardio Rate: regular rate Rhythm: regular rhythm Heart sounds: S1 normal heart sound present and S2 normal heart sound present GI Other: Abdomen is soft and nontender Skin Other: The skin is dry and unremarkable. The skin is intact. Neuro General: patient oriented x3, gait normal, moves all extremities, no focal motor deficits and CN's II-XI intact bilaterally Extrem Other: No injuries to the extremities Medical Decision Making Medical Decision Making MDM Narrative: The patient is a 79-year-old woman. She is a generally healthy 79-year-old who was still working. At work today she slipped on a wet floor and hit the back of her head. She has a negative head CT. Her cervical spine is clinically clear. She does not have any other injuries. She looks quite well. Think she may be discharged to follow up with her PCP or, since this happened at work, with the [facility]. Discharge Plan Discharge Clinical Impression: Fall, Head injury Patient Disposition: Home, Self-Care Additional Instructions: Your CAT scan was reassuring and does not show any signs of injury. I think that you are looking quite well. You may follow up with your regular doctor if you have any ongoing concerns. Alternatively, since this was an injury that occurred at work, if you wish to follow up with the clinic that deals with a work-related injuries you may contact the [facility]. Please see the contact information provided. My hope is that you will simply do very well and will not need any specific follow up. You may use ibuprofen and acetaminophen as needed for mild discomfort. You may have some mild discomfort over the next couple of days it is very common to develop neck pain or mild headaches after an injury like this. However if you are significantly worse please return to the emergency room for re-evaluation. Prescriptions: No Action cetirizine [Zyrtec] 10 mg tablet 10 mg PO DAILY PRN magnesium 200 mg tablet 400 mg PO DAILY cholecalciferol (vitamin D3) 25 mcg (1,000 unit) capsule 25 mcg PO DAILY alendronate 70 mg tablet 70 mg PO QWEEK 90 Days Qty: 13 4RF Referrals: [facility] [Provider Group] Dolly Peguero MD [Physician, Internal Medicine] Interventions: ED Discharge Assessment Last Done: 12/10/24 05:15 Discharge Date/Time: 12/10/24 05:20 Print Language: Other
[2024-12-10 04:09] VITALS: BP 132/57; PULSE 66; RESP 16; TEMP 36.3; O2SAT 96
[2024-12-10 05:15] VITALS: BP 129/56; PULSE 69; RESP 18; TEMP 36.3; O2SAT 97
== END 2024-12-10 05:20 | disposition home or self-care (01) ==
PROVIDERS: Emergency Provider Emergency Medicine
DX: S09.90XA Unspecified injury of head, initial encounter (principal); M81.0 Age-related osteoporosis without current pathological fracture; W01.0XXA Fall on same level from slipping, tripping and stumbling without subsequent striking against object, initial encounter; Y93.89 Activity, other specified; Y92.89 Other specified places as the place of occurrence of the external cause; Y99.8 Other external cause status
CPT/HCPCS: 70450; 99284

== ENCOUNTER → 2024-12-10 02:26 | Outpatient (BNV) | payer BC, SELFPAY | PROVIDERS: Emergency Provider Emergency Medicine; Visit Provider Radiology Diagnostic Radiology | DX: S09.90XA Unspecified injury of head, initial encounter (principal) | CPT/HCPCS: 70450 ==

== ENCOUNTER 2024-12-23 12:51 | Outpatient (REF) | payer BC, SELFPAY ==
--- NOTE | ~2024-12-23 | MM_ITS ---
EXAMINATION: MM SCREENING DIGITAL BREAST TOMOSYNTHESIS, BILATERAL CLINICAL INFORMATION: Screening. Asymptomatic. COMPARISON: Comparison made to multiple prior, most recent February 21, 2022, and most remote March 02, 2014. TECHNIQUE: Digital breast tomosynthesis is performed in mediolateral oblique and craniocaudal views along with computer-aided detection (CAD). Synthesized 2D images are generated from the tomosynthesis. FINDINGS: BREAST COMPOSITION: The breasts are heterogeneously dense, which may obscure small masses. BILATERAL BREASTS: No significant masses, suspicious calcifications or other abnormalities are seen in either breast. MM/MM tomosynthesis screening BI IMPRESSION: BILATERAL BREASTS: Negative, no mammographic evidence of malignancy. Normal interval follow-up is recommended in 12 months. ASSESSMENT: BI-RADS: Category 1: Negative RECOMMENDATION: Routine annual mammography screening. FOLLOW-UP: 1 year F/U This examination should not preclude the clinical evaluation of a suspicious palpable abnormality. This patient's information was entered into a reminder system with a target due date for their next mammogram. Electronically signed by: Suad Dey MD 12/25/2024 06:33 PM EDT
--- NOTE | ~2024-12-23 | MM_ITS ---
STUDY: DUAL ENERGY X-RAY ABSORPTIOMETRY / DXA REASON FOR EXAM: Female, 79 years old Z12.31 - Encounter for screening mammogram for malignant neoplasm of breast TECHNIQUE: Bone Mineral Density (BMD) measurements of the lumbar spine and left hip were obtained using [employer] COMPARISON: February 21, 2022 FINDINGS: L1-L3 BMD: 0.989 g/cm2 L1-L3 T score: -1.5. This corresponds to osteopenia. This represents a -1.9 % decrease in bone density compared with prior exam from February 11, 2022. Left femoral neck BMD: 0.720 g/cm2 Left femoral neck T score: -2.3. This corresponds to osteopenia. Left total hip BMD: 0.737 g/cm2 Left total hip T score: -2.1. This corresponds to osteopenia. This represents a 1.0 % increase in bone density compared with prior exam from February 21, 2022. * - Indicates a statistically significant change. FRAX score: 10 year risk of major osteoporotic fracture 9.5%, 10 year risk of hip fracture 3.2% MM/XR DEXA axial skeleton IMPRESSION: Osteopenia Reference Information: The T-score is the number of standard deviations above or below the standard which is normal for young adults at their peak bone mineral density. The World Health Organization (WHO) interprets the T-scores as follows: At or above -1 SD Normal bone density Between -1 and -2.5 SD Osteopenia At or below -2.5 SD Osteoporosis Electronically signed by: Suad Dey MD 12/23/2024 03:19 PM EDT
== END 2024-12-23 12:52 | disposition home or self-care (01) ==
LOC: HO.MAMMO 12:51
PROVIDERS: PCP Internal Medicine; Visit Provider Internal Medicine
DX: Z12.31 Encounter for screening mammogram for malignant neoplasm of breast (principal); M81.0 Age-related osteoporosis without current pathological fracture
CPT/HCPCS: 77063; 77067; 77080

== ENCOUNTER → 2024-12-23 13:30 | Outpatient (BNV) | payer BC, SELFPAY | PROVIDERS: PCP Internal Medicine; Visit Provider Radiology Body Imaging | DX: E28.39 Other primary ovarian failure (principal) | CPT/HCPCS: 77080 ==

== ENCOUNTER 2025-02-11 14:57 | Outpatient (AMB) | payer BC, SELFPAY ==
[2025-02-11 16:18] VITALS: BP 160/70; PULSE 84; TEMP 36.8; O2SAT 95
--- NOTE | 2025-02-11 16:18 | AM.OFFWIN_ITS ---
Intake Vital Signs 02/11/25 16:18 Height 5 ft 3 in Weight 113 lb BMI 20.0 BP 160/70 H Blood Pressure Location Rt brachial Position Sitting Pulse 84 Pulse Source Pulse Oximeter Temp 98.3 F Temp Source Oral Pulse Oximetry (%) 95 Oxygen Delivery Method Room Air Intake Visit Reasons: EP-cough, sore throat, no energy Intake Note: EP complains of cough and sore throat started three days ago. Patient Tobacco Use Status: Never used Tobacco Allergies No Known Allergies (No Known Allergies*) Allergy (Verified 02/11/25 16:27) environmental Allergy (Unknown, Uncoded 02/11/25 16:27) itching Do you need a note to return to daycare/school/sports/work: Yes HPI HPI Comments History of Present Illness Details History - The patient is a 79-year-old female pr esenting with symptoms of a cough, runny nose, and fatigue. - Symptoms began three days ago with a c ough and runny nose, followed by fatigue. - Denies fever but reports chills, espec ially during overnight work shifts. - A coworker was reportedly ill with sim ilar symptoms, suspected to be influenza. - The patient has been taking nitroglyce rin and Tylenol for symptom management. - A nasal swab was taken for COVID at [facility] and negative. - Reports a sore throat and pain on left when she swallows. - She denies fever, chills, BETTS, CP, SOB, abd pain, n/v/d. - She has sick contacts at work. - She is a non smoker. Physical Exam General: Cooperative, healthy appearing, comfortable and no acute distress Orientation/consciousness: Patient oriented x3 Limitations: No limitations Head: Normal to inspection Ears: Hearing grossly normal bilaterally, external ears normal and TM's normal bilaterally, has some fluid there Nose: Normal external nose present, normal nares present, and no nasal discharge present. Face and sinus: Sinuses nontender to palpation. Mouth: Normal oral and palatal mucosa present and moist mucous membranes noted. Throat: Tonsils normal. Uvula is midline. Posterior oropharynx with erythema and no exudates. One side of the throat is hurt. Eyes: Appearance normal, both eyes and all related structures Neck: Normal visual inspection, full ROM. No lymphadenopathy noted. Respiratory: Clear to auscultation bilaterally. Normal respiratory effort, able to speak in complete sentences. No respiratory distress, not tachypneic, no tripod positioning and no use of accessory muscles. Cardiovascular: Regular rate and rhythm. Normal S1 and S2 Skin: No rashes or lesions noted Patient was informed and verbally consented to the use of an ambient scribe for clinic note documentation during this visit [facility] Medical History (Updated 12/11/24 @ 00:00 by Willie Dasunny) Dyslipidemia Osteoporosis Family history of early CAD Menopause Breast cancer screening by mammogram Colon cancer screening Knee pain, left Pulmonary nodules/lesions, multiple Surgical History History of partial hysterectomy Family History Father HTN (hypertension) Mother HTN (hypertension) History of heart attack Diabetes mellitus CVD (cardiovascular disease) Brother No problems noted. Brother Stroke Son No problems noted. Social History Housing: House Alcohol intake: never Patient Tobacco Use Status: Never used Tobacco e-Cigarette/Vaping Use: Never Used Second Hand Smoke Exposure: No service: No Current occupational status: employed Current occupational exposures/hazards: No Cognitive needs: No Hearing needs: No Vision needs: No Review of Systems Const All systems reviewed & are unremarkable except as noted in HPI and below Physical Exam Vital Signs: Last Vital Signs Temp 98.3 F 02/11/25 16:18 Pulse 84 02/11/25 16:18 BP 160/70 H 02/11/25 16:18 Pulse Ox 95 02/11/25 16:18 Oxygen Delivery Method Room Air 02/11/25 16:18 BMI result Body Mass Index 20.0 Results AMB Rapid Strep AMB Rapid Strep Negative Last Edit by Aditya Schultz MA on 02/11/25 16:44 Results Reviewed Results Reviewed: Laboratory Last Values Strep Scn Rapid Clinic Negative 02/11/25 16:42 Assessment & Plan Assessment & Plan (1) URI with cough and congestion: Code(s): J06.9 - Acute upper respiratory infection, unspecified Plan Most likely URI vs covid vs flu vs RSV vs viral illness Rapid was negative plan - Symptomatic treatment with Tylenol and Motrin for fever and discomfort. - Prescribed nasal spray, decongestant, and cough medicine for symptom relief. - Advised to increase fluid intake and rest. - Nasal swab sent for COVID, influenza, and RSV testing to confirm diagnosis. - Patient to be informed of test results for further management. - follow up with PCP Orders: Orders AMB Rapid Strep Screen Today Z13.9 - Encounter for screening, unspecified SARS-CoV2/FLU/RSV Today R09.89 - Other specified symptoms and signs involving the circulatory and respiratory systems Medications: New cetirizine-pseudoephedrine 5-120 mg ER 1 tab PO BID 14 tabs 0RF 7 days fluticasone propionate 50 mcg/actuation administer into each nostril 1 spray intranasal Q12H 16 grams 0RF benzonatate 100 mg PO bid-tid PRN 21 caps 0RF Cough 7 days Coding Level of Care Code Est Pt Level 3 (59999) Diagnoses URI with cough and congestion J06.9
--- OUTSIDE RECORDS SUMMARY | 2025-02-11 18:13 | XMS_ITS | Data Portability ---
Author Organization [facility], [address] Address [address] [place] [address] Assessment No assessment recorded. Plan of Treatment [...] Template NON DOT completed MARBELLA HAASODETTE SHANNON [employer] [facility] 03/17/2022 19:15:18 Imaging Results None recorded. [...] Diagnosis SNOMED-CT Code Diagnosis ICD10 Code Diagnosis IMO Codes Diagnosis Note [id number] [facility] [address] [facility] [place] [address] 06/08/2017 15:00:15 06/08/2017 16:24:23 [id number] Alessio Dalton NP [facility] [address] [place] [address] 03/17/2022 16:54:56 03/17/2022 19:29:50 History and physical examination, pre-employment [id number] Z02.1 Health Concerns Section Related Observation LastModified by Organization Detai ls LastModified Time None Recorded Concern Status LastModified by Organization Details LastModified Time None Recorded Advance Directives Directive None Recorded Payers Insurance Date Sequence Insurance Name Policy Number Policy Guy Covered Member ID Guy Member ID Guarantor Name 03/17/2022 1 [facility] [id number] Estrelita Isabela [id number] Estrelita Isabela 03/17/2022 OC-ESCREEN Estrelita Isabela [id number] Estrelita Isabela OBGyn Episode No OBEpisode recorded.
== END 2025-02-11 17:26 | disposition home or self-care (01) ==
PROVIDERS: PCP Internal Medicine; Visit Provider Physician Assistant Medical
DX: J06.9 Acute upper respiratory infection, unspecified (principal); Z13.9 Encounter for screening, unspecified

== ENCOUNTER → 2025-02-11 14:57 | Outpatient (BNVA) | payer BC, SELFPAY | PROVIDERS: PCP Internal Medicine; Visit Provider Physician Assistant Medical | DX: J06.9 Acute upper respiratory infection, unspecified (principal) | CPT/HCPCS: 87880 ==

== ENCOUNTER 2025-02-12 10:13 | Outpatient (REF) | payer BC, SELFPAY ==
[2025-02-12 11:24] LABS: Resp Syncy Virus RNA Qual PCR NEGATIVE (Negative); SARS COV2 PCR INHOUSE POSITIVE (Negative)
== END 2025-02-12 10:14 | disposition home or self-care (01) ==
LOC: HO.LNP 10:13
PROVIDERS: Visit Provider Physician Assistant Medical
DX: R09.89 Other specified symptoms and signs involving the circulatory and respiratory systems (principal)
CPT/HCPCS: 87637

== ENCOUNTER 2025-03-02 08:00 | Outpatient (REF) | payer BC, SELFPAY ==
[2025-03-02 10:43] LABS: Alanine Aminotransferase 15 U/L (0-31); Aspartate Amino Transferase 24 U/L (5-31); Cholesterol 262 mg/dL (<200); HDL Cholesterol 78 mg/dL (>40); Triglycerides 100 mg/dL (<150)
== END 2025-03-02 08:01 | disposition home or self-care (01) ==
LOC: HO.HMGCLDS 08:00
PROVIDERS: PCP Internal Medicine; Visit Provider Internal Medicine
DX: M81.0 Age-related osteoporosis without current pathological fracture (principal); E78.5 Hyperlipidemia, unspecified
CPT/HCPCS: 36415; 80061; 82306; 84450; 84460

== ENCOUNTER 2025-03-09 15:38 | Outpatient (AMB) | payer BC, SELFPAY ==
[2025-03-09 15:41] VITALS: BP 135/64; PULSE 81; RESP 16; TEMP 36.7; O2SAT 100; BMI 22.1
--- NOTE | 2025-03-09 15:41 | A.OFFPC_ITS ---
Vital Signs 03/09/25 15:41 Height 5 ft Weight 113 lb BMI 22.1 BP 135/64 Blood Pressure Location Rt brachial Position Sitting Respiration 16 Pulse 81 Pulse Source Pulse Oximeter Temp 98.1 F Temp Source Oral Pulse Oximetry (%) 100 Oxygen Delivery Method Room Air Intake Visit Reasons: 4mo. f/u lipids Intake Note: Pt is here today for her 4mo. f/u [employer] Required: No Allergies No Known Allergies (No Known Allergies*) Allergy (Verified 03/09/25 22:57) environmental Allergy (Unknown, Uncoded 03/09/25 22:57) itching Medication List - Last Reconciled 03/09/25 by Dolly Peguero MD alendronate 70 mg PO QWEEK 90 days cholecalciferol (vitamin D3) 25 mcg PO DAILY magnesium 400 mg PO DAILY potassium chloride 20 mEq PO DAILY rosuvastatin 5 mg PO 2XW 3 months vitamin B complex 1 tab PO DAILY Tobacco use date assessed: 03/09/25 Fall risk assessment: 1 Fall in past year Last assessed Fall Risk: 03/09/25 HPI 4mo. f/u lipids HPI Details 79-year-old lady with past medical histo ry significant for osteoporosis, and dyslipidemia, here today for her follow-up visit. She has been consistent with taking her alendronate 70 mg once a week, stays active, still works full-time at the [employer]. Latest bone density scan done 11/2024 showed improvement in her bone density now with osteopenia in both lumbar spine, left femoral neck and left total hip. Has been on alendronate since 2022, tolerating medication well. Mammogram done at the same time showed benign findings. Latest fasting labs still elevated LDL cholesterol and total cholesterol. Has strong family history for coronary artery disease and acute myocardial infarction, her 2 brothers already had CABG in their 60s. She has been feeling well, with no complaints of any chest pain, lightheadedness or shortness of breath. [facility] Medical History (Updated 03/09/25 @ 23:14 by Dolly Peguero MD) Osteopenia of multiple sites History of osteoporosis Dyslipidemia Osteoporosis Family history of early CAD Surgical History History of partial hysterectomy Family History Father HTN (hypertension) Mother HTN (hypertension) History of heart attack Diabetes mellitus CVD (cardiovascular disease) Brother No problems noted. Brother Stroke Son No problems noted. Social History Housing: House Alcohol intake: never Patient Tobacco Use Status: Never used Tobacco e-Cigarette/Vaping Use: Never Used Second Hand Smoke Exposure: No service: No Current occupational status: employed Current occupational exposures/hazards: No Cognitive needs: No Hearing needs: No Vision needs: No Questionnaire PHQ-9 Over the last 2 weeks, how often have you been bothered by any of the following problems? Depression Screening Interpretation: Negative Depression Screening Done: Yes Source: Developed by Drs. Bran Boggs, Hanna Contreras, Tristen Mendez and colleagues, with an educational audelia from [employer]. Thrive Questionnaire Date Thrive assessed: 03/09/25 I am a: Patient What is your living situation today?: I have a steady place to live Within the past 12 months, did the food you bought not last and you didn't have the money to get more?: Never true Within the past 12 months, did you worry whether your food would run out before you got money to buy more?: Never true Do you have trouble paying for medicines?: No Do you have trouble getting transportation to medical appointments?: No Do you have trouble paying your heating and electricity bill?: No Do you have trouble taking care of your child, family member or friend?: No Do you have trouble with day-to-day activities such as bathing, preparing meals, shopping, managing finances, etc.?: No Are you currently unemployed and looking for a job?: No Are you interested in more education?: No THRIVE Score: 0 AUDIT C Alcohol Use Questionnaire (AUDIT-C) 1. How often do you have a drink containing alcohol?: Never Total Score: 0 UMESH-7 AMB Questionnaire UMESH-7 Date UMESH - 7 assessed: 03/09/25 Feeling nervous, anxious, or on edge: 0 = Not at all Not being able to stop or control worryin = Not at all Worrying too much about different things: 0 = Not at all Trouble relaxin = Not at all Being so restless that it is hard to sit still: 0 = Not at all Becoming easily annoyed or irritable: 0 = Not at all Feeling afraid as if something awful might happen: 0 = Not at all Total UMESH-7 score (0-4 normal; 5-9 mild; 10-14 moderate; 15-21 severe): 0 Source: Developed by Drs. Bran Boggs, Hanna Contreras, Tristen Mendez and colleagues, with an educational audelia from [employer]. UMESH-7 Assessment Billing UMESH-7 Assessment Tool: UMESH-7 Assessment 34372 Review of Systems Const Denies body aches, Denies frequent falls, Denies lethargy, Denies malaise and Denies weakness Eyes Details: Sees Dr. Faulkner Reports requires corrective lenses ENT Details: Has full dentures Reports Normal hearing present and Denies dysphagia Card Denies chest pain, Denies chest pain with activity, Denies rapid heart rate, Denies irregular heart rhythm, Denies lightheadedness and Denies dyspnea Resp Denies cough and Denies dyspnea GI Denies abdominal pain, Denies change in bowel habits, Denies change in stool character, Denies dysphagia, Denies early satiety, Denies dyspepsia, Denies heartburn and Denies nausea Reports no additional complaints Musc Details: No history of fractures Reports no additional complaints Skin/Breast Denies breast pain, Denies breast mass and Denies rash Neuro Reports Normal hearing present, Denies frequent falls, Denies Sensory deficit (Neuro) and Denies weakness Psych Reports no additional complaints Endo Reports no additional complaints Haja/Lymph Reports no additional complaints Aller/Immun Reports no additional complaints Physical exam (Primary Care) Vital Signs: Last Vital Signs Temp 98.1 F 03/09/25 15:41 Pulse 81 03/09/25 15:41 Resp 16 03/09/25 15:41 BP 135/64 03/09/25 15:41 Pulse Ox 100 03/09/25 15:41 Oxygen Delivery Method Room Air 03/09/25 15:41 BMI result Body Mass Index 22.1 Tobacco/Smoking Status: Tobacco use Status Tobacco use date assessed 03/09/25 03/09/25 15:49 Patient Tobacco Use Status Never used Tobacco 03/09/25 15:42 e-Cigarette/Vaping Use Never Used 03/09/25 15:42 Depression Screening Interpretation: Negative Thrive Assessment: Date of Thrive Assessment Date Thrive assessed 01/24/22 03/09/25 15:42 Const General: no acute distress Nutritional Appearance: average body habitus Orientation/consciousness: patient oriented x3 Limitations: no limitations HENMT Head: Yes normocephalic Ears: hearing grossly normal bilaterally and external ears normal General nose exam: Normal external nose present Face and sinus: Yes face symmetric Mouth: moist mucous membranes Neck Neck: Yes full ROM and Yes no lymphadenopathy Thyroid: Thyroid normal Resp Effort & Inspection: normal respiratory effort and able to speak in complete sentences Auscultation: clear to auscultation bilaterally Cardio Rate: regular rate Rhythm: regular rhythm Heart sounds: S1 normal heart sound present and S2 normal heart sound present GI Inspection: Yes normal to inspection Palpation (GI): Soft to palpation, nontender, no guarding and no masses Auscultation: normal bowel sounds Skin General skin exam: no rashes or lesions noted Neuro General: patient oriented x3, gait normal, moves all extremities and no focal motor deficits Cranial nerves: Yes Normal hearing present Cognition (Neuro): normal cognition Gait exam (Neuro): Normal gait present Motor exam (neuro): 5/5 motor strength present throughout Sensory Exam: No Sensory deficit (Neuro) Extrem General: Yes normal to inspection, Yes full ROM, Yes no pedal edema and Yes normal gait Psych Appearance: grossly normal and well kempt Mental Status: mental status grossly normal Speech and movement: Normal speech and movement present Affect: normal affect Results Reviewed Results Reviewed: Date of Service: 12/23/24 Follow Up: Procedure(s): XR DEXA axial skeleton Accession Number(s): [id number] cc: Dolly Peguero MD~ Reason For Exam: Z12. - Encounter for screening mammogram for malignant neoplasm of breast STUDY: DUAL ENERGY X-RAY ABSORPTIOMETRY / DXA REASON FOR EXAM: Female, 79 years old Z12.31 - Encounter for screening mammogram for malignant neoplasm of breast TECHNIQUE: Bone Mineral Density (BMD) measurements of the lumbar spine and left hip were obtained using [employer] COMPARISON: February 21, 2022 FINDINGS: L1-L3 BMD: 0.989 g/cm2 L1-L3 T score: -1.5. This corresponds to osteopenia. This represents a -1.9 % decrease in bone density compared with prior exam from February 11, 2022. Left femoral neck BMD: 0.720 g/cm2 Left femoral neck T score: -2.3. This corresponds to osteopenia. Left total hip BMD: 0.737 g/cm2 Left total hip T score: -2.1. This corresponds to osteopenia. This represents a 1.0 % increase in bone density compared with prior exam from February 21, 2022. * - Indicates a statistically significant change. FRAX score: 10 year risk of major osteoporotic fracture 9.5%, 10 year risk of hip fracture 3.2% MM/XR DEXA axial skeleton IMPRESSION: Osteopenia Name: Gilberto Mar Age/Sex: 79/F : 1945 Unit#: [id number] Attend Dr: Dolly Peguero MD Re03/02/25 Status: DEP [facility] Disch: SPEC : [id number] [place]: 03/02/25 STATUS: COMP REQ : [id number] RECD: 03/02/25 [facility] DR: Dolly Peguero MD COMP: 03/02/25 ENTERED: 03/02/[address]: ORDERED: AST, ALT, Lipid Panel, Vitamin D 25-OH Test Result Flag Reference AST (GOT) 24 5-31 U/L ALT (GPT) 15 0-31 U/L Triglyceride 100 <150 mg/dL Desirable Triglyceride: less than 150 mg/dL Borderline High Triglyceride 150-199 mg/dL High Triglyceride: 200-499 mg/dL Very High Triglyceride: greater than or equal to 5OO mg/dL Cholesterol 262 H <200 mg/dL Desirable Cholesterol: less than 200 mg/dL Borderline High Cholesterol: 200-239 mg/dL High Cholesterol: greater than 239 mg/dL LDL Calculated 164 H <100 mg/dL Desirable LDL: less than 100 mg/dL Near Optimal/Above Optimal LDL: 110-129 mg/dL Borderline High LDL: 130-159 mg/dL High LDL: 160-189 mg/dL Very High LDL: greater than or equal to 190 mg/dL HDL 78 >40 mg/dL Desirable HDL: greater than 40 mg/dL Note: This HDL assay may give artificially low results in patients with liver disease. Vitamin D 25-OH 73.9 >30 ng/mL Health Based Reference Values* < 20 ng/mL Deficient 20-30 ng/mL Insufficient > 30 ng/mL Sufficient Coding Level of Care Code Est Pt Level 4 (47898) Diagnoses Dyslipidemia E78.5 Osteopenia of multiple sites M85.89 Additional Codes UMESH-7 Assessment Billing - UMESH-7 Assessment Tool: UMESH-7 Assessment 78506 ([id number]) Assessment & Plan Assessment & Plan (1) Dyslipidemia: Code(s): E78.5 - Hyperlipidemia, unspecified Category: Medical Plan: Reviewed recent fasting lipid results with patient, with no improvement in LDL cholesterol noted despite diet and exercise. Will start on rosuvastatin 5 mg to take 1 tablet twice a day week . Continue with adherence to low-cholesterol diet and getting regular exercise. Repeat another fasting lipid panel and liver enzymes in 3 months. (2) Osteopenia of multiple sites: Comment: As seen in bone density scan done November 2024. Has been on alendronate since 2022 Code(s): M85.89 - Other specified disorders of bone density and structure, multiple sites Category: Medical Plan: Latest bone density scan showed improvement in her bone density now with osteopenia in [place] left total hip and left femoral neck as well as in her lumbar spine, continue with alendronate 70 mg once a week, continue with regular moderate intensity exercise, and taking adequate calcium from dietary sources and vitamin-D 3 supplements daily. Repeat another bone density scan in 2026 Orders: Orders Lipid Panel 3 Months E78.5 - Hyperlipidemia, unspecified, M81.0 - Age-related osteoporosis without current pathological fracture, Z82.49 - Family history of ischemic heart disease and other diseases of the circulatory system Aspartate Amino Transferase 3 Months E78.5 - Hyperlipidemia, unspecified, M81.0 - Age-related osteoporosis without current pathological fracture, Z82.49 - Family history of ischemic heart disease and other diseases of the circulatory system Alanine Aminotransferase 3 Months E78.5 - Hyperlipidemia, unspecified, M81.0 - Age-related osteoporosis without current pathological fracture, Z82.49 - Family history of ischemic heart disease and other diseases of the circulatory system Vitamin D 25-OH Total 3 Months E78.5 - Hyperlipidemia, unspecified, M81.0 - Age-related osteoporosis without current pathological fracture, Z82.49 - Family history of ischemic heart disease and other diseases of the circulatory system Vitamin B12 and Folate 3 Months E78.5 - Hyperlipidemia, unspecified, M81.0 - Age-related osteoporosis without current pathological fracture, Z82.49 - Family history of ischemic heart disease and other diseases of the circulatory system Medications: New rosuvastatin 5 mg PO 2XW 26 tabs 1RF 3 months E78.5 - Hyperlipidemia, unspecified, Z82.49 - Family history of ischemic heart disease and other diseases of the circulatory system
--- OUTSIDE RECORDS SUMMARY | 2025-03-09 22:25 | XMS_ITS | Data Portability ---
Author Organization [facility] - [facility], [address] Address [address] [place] [address] Assessment No assessment recorded. Plan of Treatment [...] Template NON DOT completed MARBELLA HAASODETTE SHANNON [employer] [facility] 03/17/2022 19:15:18 Imaging Results None recorded. [...] ICD10 Code Diagnosis IMO Codes Diagnosis Note [id number] [facility] [facility] [place] [address] 06/08/2017 15:00:15 06/08/2017 16:24:23 [id number] Alessio Dalton NP [address] [place] [address] 03/17/2022 16:54:56 03/17/2022 19:29:50 History and physical examination, pre-employment [id number] Z02.1 Health Concerns Section Related Observation LastModified by Organization Detai ls LastModified Time None Recorded Concern Status LastModified by Organization Details LastModified Time None Recorded Advance Directives Directive None Recorded Payers Insurance Date Sequence Insurance Name Policy Number Policy Guy Covered Member ID Guy Member ID Guarantor Name 03/17/2022 1 [facility] [id number] Estrelita Isabela [id number] Estrelita Isabela 03/17/2022 OC-ESCREEN Estrelita Isabela [id number] Estrelita Isabela OBGyn Episode No OBEpisode recorded.
== END 2025-03-09 16:27 | disposition home or self-care (01) ==
LOC: HO.HMCC 15:39
PROVIDERS: PCP Internal Medicine; Visit Provider Internal Medicine
DX: E78.5 Hyperlipidemia, unspecified (principal); M85.89 Other specified disorders of bone density and structure, multiple sites

== ENCOUNTER → 2025-03-09 15:38 | Outpatient (BNVA) | payer BC, SELFPAY | PROVIDERS: PCP Internal Medicine; Visit Provider Internal Medicine | DX: M85.89 Other specified disorders of bone density and structure, multiple sites (principal); E78.5 Hyperlipidemia, unspecified | CPT/HCPCS: 96127 ==